=== PATIENT | female | born 2000 | race Two or more races ===

== ENCOUNTER 2024-10-07 18:53 | Emergency (ER) | payer OTHER ==
[~2024-10-07] VITALS: Ht 154.9 cm; Wt 63.5 kg
[2024-10-07] MEDS ORDERED: KETOROLAC TROMETHAMINE 60 MG VIAL IM STA (23:33)
[2024-10-07] MEDS ORDERED: CEFTRIAXONE SODIUM 1,000 MG VIAL IM STA (23:33)
[2024-10-07] MEDS ORDERED: DEXAMETHASONE SODIUM PHOSPHATE 4 MG/ML VIAL IM STA (23:33)
[2024-10-07] MEDS ORDERED: HYDROCODONE/CHLORPHEN P-STIREX 5 ML ML PO STA (23:34)
[2024-10-07] MEDS ORDERED: LIDOCAINE HCL 1% 10ML VIAL ONE (23:52)
[2024-10-07] MEDS ORDERED: DEXAMETHASONE SODIUM PHOSPHATE 4 MG/ML VIAL ONE (23:52)
[2024-10-07] MEDS ORDERED: KETOROLAC TROMETHAMINE 60 MG VIAL IM ONE (23:52)
[2024-10-07] MEDS ORDERED: CEFTRIAXONE SODIUM 1,000 MG VIAL ONE (23:52)
== END 2024-10-08 00:18 | disposition home or self-care (01) ==
LOC: ER 18:55
DX: J06.9 Acute upper respiratory infection, unspecified (principal)